=== PATIENT | male | born 1930 | race Caucasian/White ===

== ENCOUNTER 2016-12-30 12:23 | Inpatient (IN) | payer MEDICARE, OTHER ==
--- NOTE | ~2016-12-30 | HP ---
History And Physical [id number] [facility] [place]. [address] NAME: JAY RENTERIA : 34 STATUS : ADM IN [facility]#: [id number] AGE: 86 ADM/REG DATE : 12/30/16 MR#: [id number] REPORT SERV DATE: 12/30/16 DICTATED BY: RITCHIE OG DATE: 12/30/16 REPORT STATUS : Draft TRANSCRIBED BY: MODL DATE: 12/30/16 DATE OF ADMISSION: 12/30/2016 CHIEF COMPLAINT: Dyspnea. HISTORY OF PRESENT ILLNESS: The patient is an 86-year-old white male with a long complex past medical history most notably, he has an ischemic cardiomyopathy with an EF of 35; chronic kidney disease; and diabetes mellitus. He has a history of repeated admissions. Today, he presented after having about three to four days of increased shortness of breath. He has a cough and he has not had much in the way of sputum production. No new lower extremity edema. No typical orthopnea. He has had no abdominal pain. No diarrhea. No nausea or vomiting, and no chest pain. Over the last couple of days, he does have intermittent chest pain at home on a regular basis, which is consistent with stable angina for which he takes nitroglycerin, but he has not taken in the last couple of days. His most notable complaint is shortness of breath. He also has what he describes as a pimple under his right arm. He has had this in the past. It sounds like he has had hidradenitis on the left arm. This area was red and he actually went to the walk-in clinic yesterday and received p.o. Bactrim. He has not had documented fevers, but they have not taken his temperature. He is demented. He has a history of significant neuropathy and some gait instability. He also had a previous stroke. He requires a walker to ambulate and he requires assistance with most of his ADLs according to his . Over the last several days, he has become progressively weaker and has been unable to ambulate independently. PAST MEDICAL HISTORY: 1. CAD with history of CABG. 2. Ischemic cardiomyopathy, EF of 35. 3. Status post defibrillator and pacemaker. 4. Hypertension. 5. PAD with history of left carotid endarterectomy. 6. Chronic hypoxemic respiratory failure on 2 liters of O2, etiology unclear, but past CT shows what looks like an interstitial lung disease. 7. Diabetes mellitus. 8. Hypothyroidism. 9. Hyperlipidemia. 10.Gout. 11.B12 deficiency. 12.CKD with baseline creatinine around 1.5 to 2.0. 13.Peripheral neuropathy. 14.Ataxia. 15.Previous stroke. 16.Dementia. 17.Previous encephalopathy. PAST SURGICAL HISTORY: He has had a CABG, AICD and pacer; multiple skin cancer removal; tonsillectomy; and CEA. History And Physical [address] [address] NAME: JAY RENTERIA : 32 STATUS : ADM IN [facility]#: [id number] AGE: 86 ADM/REG DATE : 12/30/16 MR#: [id number] REPORT SERV DATE: 12/30/16 DICTATED BY: RITCHIE OG DATE: 12/30/16 REPORT STATUS : Draft TRANSCRIBED BY: LUCI DATE: 12/30/16 SOCIAL HISTORY: He quit smoking in the 70s. He does not drink alcohol. He is , lives with his . ALLERGIES: CODEINE. HOME MEDICATIONS: Reviewed and attached. REVIEW OF SYSTEMS: A full 10-point review of systems was obtained. Pertinent positives mentioned in the HPI. PHYSICAL EXAMINATION: CURRENT VITAL SIGNS: He is 98% on 5 liters, BP is 153/72, temperature 97.1, pulse 70, and respiratory rate 16. GENERAL: Elderly white male, who appears frail. HEENT: Normocephalic and atraumatic. Throat is clear. NECK: Supple. HEART: Regular rate and rhythm. LUNGS: He has crackles at both bases. ABDOMEN: Soft, nontender, and nondistended. He has normal bowel sounds. He was soaked in urine when arrived. EXTREMITIES: His extremities are warm and dry. He has 2+ pulses at the feet with no peripheral edema. SKIN: He has two pustules under his right arm, but no surrounding cellulitis. NEUROLOGIC: He is alert and he is oriented to person and place, but not time. He has symmetrical strength and tone in all four extremities, but is generally weak. LABORATORY AND X-RAY: EKG shows sinus rhythm with no acute ST-T wave changes. Sodium is 145, potassium 4, chloride 107, CO2 32, BUN and creatinine 33 and 1.67, and glucose 236. LFTs are normal. Troponin is 0.07. Lactate is 3.2. ABG is 7.46/33/74. CBC: White count 31, H and H 12.7 and 39, and platelets are 294. INR is 1.2. BNP is 620. Chest x-ray, it looks like venous congestion, some right base atelectasis. ASSESSMENT/PLAN: 1. Hypoxemic respiratory failure with associated leukocytosis. Hypoxemia with increased O2 requirement of 5 liters, previously on 2, certainly raises suspicion for underlying infection; however, it is not clearcut on x-ray and he has no increased cough or sputum. I have yet to see his urine sample. I am going to cover him empirically for pneumonia. We will culture his blood and urine. Check procalcitonin. Repeat his lactic acid. Place him on also some DuoNebs and continue his O2. May do additional imaging with CT to further define. 2. History of acute ischemic cardiomyopathy with defibrillator, pacemaker, and what looks like some component of volume overload. His BNP is up. He has crackles on exam. I am going to diurese him over the next 24 hours. He has gotten one dose of Lasix in the ER. I am going to place a [place]. Keep in's and out's, daily weights, place him on a 2 g sodium diet. 3. Pustule under the right armpit, this is a possible hidradenitis. He is covered with antibiotics. We will follow very closely. History And Physical [address] [address] NAME: JAY RENTERIA : 34 STATUS : ADM IN PAT#: [id number] AGE: 86 ADM/REG DATE : 12/30/16 MR#: [id number] REPORT SERV DATE: 12/30/16 DICTATED BY: RITCHIE OG DATE: 12/30/16 REPORT STATUS : Draft TRANSCRIBED BY: LUCI DATE: 12/30/16 4. History of chronic kidney disease, stable at baseline. 5. Possible history of interstitial lung disease on previous CT, again repeat imaging. 6. History of peripheral artery disease. 7. History of coronary artery disease. Troponin is 0.07, but no EKG changes. No chest pain. We will repeat with two more sets of enzymes. 8. Diabetes mellitus. Continue home insulin. We will add sliding scale. 9. History of ataxia. We will place on fall risk precautions. 10.History of dementia. 11.Code status. The patient does not desire intubation or mechanical ventilation. This has been indicated in his chart per the DNR order set. He does, however, desire CPR according to his and these orders have been written. 12.Disposition. Pending above aforementioned plan and workup. 13.Deep venous thrombosis prophylaxis. Subcutaneous heparin. FÁTIMA/LUCI Ritchie Og M.D. / [id number] CC: Leonardo Malik M.D. Jay Horton Jr., M.D. Pj Angeles M.D., Ph.D, F.A.C.C.
--- NOTE | ~2016-12-30 | DS ---
Discharge Summary [id number] [place]. [address] NAME: JAY RENETRIA : 34 STATUS : DIS IN PAT#: [id number] AGE: 86 ADM/REG DATE : 12/30/16 MR#: [id number] REPORT SERV DATE: 01/02/17 DICTATED BY: STARLA CH DATE: 01/01/17 REPORT STATUS : Draft TRANSCRIBED BY: MODL DATE: 01/01/17 ADMISSION DATE: 12/30/2016 DISCHARGE DATE: 01/01/2017 DISCHARGE DIAGNOSES: 1. Acute hypoxic respiratory failure, combination of heart failure plus lung cancer. 2. Ischemic cardiomyopathy. 3. Acute on chronic systolic heart failure. 4. Chronic obstructive pulmonary disease with newly diagnosed with clinically metastatic lung cancer, seen by Dr. Connelly and Dr. Vidales. The patient is referred to [facility]. 5. Chronic kidney disease. 6. Diabetes mellitus. CONSULTANTS: 1. Hector Connelly M.D. 2. Roger Vidales M.D. 3. [facility]. HISTORY OF PRESENT ILLNESS: This is an 86-year-old male patient, who came to the hospital with short of breath. Please see dictated H and P done by Dr. Inge Og. HOSPITAL COURSE: He was admitted to the hospital with hypoxia, had an evaluation with CT of the chest along with the treatment of heart failure and pneumonia. His CT scan showed large left lower lobe mass with multiple lymph nodes and also large adrenal nodules and multiple liver lesions. Discussed it with Dr. Connelly, the patient was seen by Dr. Connelly, evaluation done. More likely clinically the patient has a metastatic lung cancer. After discussion with myself and also chef saucier, the patient was referred to Dr. Vidales. Having a discussion with Dr. Vidales, the care was decided to be referred to [facility]. He is being diuresed with diuretics while he is in here. He is deciding that he will be discharged to home with [facility] for his end of life care. EKL/MODL Starla Ch M.D. / [id number] CC: Leonardo Malik M.D.
[2016-12-30 11:50] LABS: BASOPHILS ABSOLUTE 0.31 10/3/uL (0.0-0.16); EOSINOPHILS 0 %; EOSINOPHILS ABSOLUTE 0.01 10/3/uL (0.0-0.53); HEMATOCRIT 39.4 % (40.0-51.0); HEMOGLOBIN 12.7 g/dL (13.6-17.8); IMMATURE GRANULOCYTES 17.5 %; LYMPHOCYTES 9.6 %; LYMPHOCYTES ABSOLUTE 2.99 10/3/uL (0.67-4.30); MEAN CORPUS HGB CONC 32.2 g/dL (32.0-36.0); MEAN CORPUSCULAR HEMOGLOB 29.3 pg (26.0-34.0); MEAN CORPUSCULAR VOLUME 90.8 fL (80-100); MEAN PLATELET VOLUME 10.1 fL (9.2-13.0); MONOCYTES 9.2 %; MONOCYTES ABSOLUTE 2.87 10/3/uL (0.21-1.20); NEUTROPHILS 62.7 %; NEUTROPHILS ABSOLUTE 19.58 10/3/uL (2.02-8.40); PLATELET COUNT 94 10/3/uL (150-400); RBC DISTRIBUTION WIDTH 19.1 % (12.0-16.0); RED CELL COUNT 4.34 10/6/uL (4.7-6.1); WHITE BLOOD CELLS 31.2 10/3/uL (4.5-10.5)
[2016-12-30 11:51] LABS: IMMATURE GRANULOCYTES ABSOLUTE 5.47 10/3/uL (0.0-0.11); MANUAL DIFF NO %
[2016-12-30 11:57] LABS: INTERNATIONAL NORMAL RATI 1.2 UNITS (-); PROTIME (NOT ORD) 14.7 SEC (12.0-14.5)
[2016-12-30 11:58] LABS: NUCLEATED RED BLOOD CELLS 1.1 /100WBC (0-0)
[2016-12-30 12:06] LABS: ALBUMIN 3.6 G/DL (3.5-5.0); ALKALINE PHOSPHATASE 105 U/L (45-117); BUN (BLOOD UREA NITROGEN) 33 MG/DL (6-23); CALCIUM, SERUM 8.9 MG/DL (8.5-10.4); CHLORIDE, SERUM 107 MMOL/L (96-112); CO2 (CARBON DIOXIDE) 32 MMOL/L (24-34); CREATININE 1.67 MG/DL (0.70-1.30); GFR AFRICAN AMERICAN 43 ML/MIN (>=60); GFR NON AFRICAN AMERICAN 37 ML/MIN (>=60); GLOBULIN 3.5 G/DL (2.5-4.1); GLUCOSE, SERUM 236 MG/DL (60-99); SGOT(AST) 31 U/L (5-40); SGPT(ALT) 50 U/L (5-65); SODIUM, SERUM 145 MMOL/L (135-148); TOTAL BILIRUBIN 0.5 MG/DL (0-1.2); TOTAL PROTEIN 7.1 G/DL (6.0-8.5)
[2016-12-30 12:07] LABS: TROPONIN I 0.07 NG/ML (<0.05)
[2016-12-30 12:09] LABS: ALLENS TEST Pos; BE (BASE EXCESS) -0.2 MEQ/L (0 +/- 2.5); CARBOXYHEMOGLOBIN 1.7 % (0-3); DEVICE NC; HEMOBLOGIN CONTENT 13.1 G/DL (14-18); INSTRUMENT SERIAL # 8087; METHEMOGLOBIN 0.3 % (0-3); PCO2 (CO2 TENSION) 33 MMHG (35-45); PO2 (O2 TENSION) 74 MMHG (79-93); SAMPLE Arterial; pH 7.46 (7.37-7.43)
[2016-12-30 12:09] LABS: ANISOCYTOSIS 1+ (5-10/OIF) (0-5/OIF); BAND NEUTROPHILS 14 %; ER DIFF TAT 0 Hrs 23 Mins; IMMATURE GRANS ABSOLUTE (CALC) 4.68 10/3/uL (0.0-0.11); LYMPHOCYTES 8 %; METAMYELOCYTES 13 %; MONOCYTES 10 %; MONOCYTES ABSOLUTE (CALC) 3.12 10/3/uL (0.21-1.20); MYELOCYTES 1 %; PLATELET ESTIMATE DEC (ADEQUATE); SEGMENTED NEUTROPHIL (0) 54 %; TOTAL NUCLEATED CELLS 100
[~2016-12-30 12:23] MED LIST: ARICEPT PO; ARICEPT10 PO; ARICEPT23 MG PO; ARICEPT5 PO; ASAB PO; B121000P IM; CALTRA600D PO; COREG12 PO; COREG3 PO; COREG6 PO; DCN100 PO; DIABET2.5 PO; DIABETA5 PO; DIOV80 PO; DIOVAN40 MG PO; FISH-EPA1000 MG PO; FLEX PO; FLOMAX4 PO; FOLIC PO; FORTICAL200 MG/ACT NAS; HALF81 PO; IND25 PO; K-TABS10 MEQ PO; KDUR20 PO; KEPPRA250 PO; KLOR-CON M2020 MEQ PO; L40 PO; LANTUS SC; LANTUSCART SC; LEVAQUIN750 MG PO; LEVOTHYROXIN100 MCG PO; LEVOTHYROXIN50 MCG PO; LEVOTHYROXIN88 MCG PO; LIPITOR10 PO; LOPID6 PO; LYRICA200 MG PO; LYRICA50 PO; MIACALCIN NAS; MUCINEX600 MG PO; NAMENDA10 MG PO; NAMENXR28 PO; NITROQUICK0.4 MG SL; NITROSTAT0.4 MG SL; OS500 PO; OS500+D PO; PLAVIX PO; POTASSIUM PO; PRILO PO; RAZADYNE12 MG PO; REM15 PO; VICTOZA18 MG/3 ML SC; Z300 PO; ZOCOR10 PO
[2016-12-30] MEDS ORDERED: PLAVIX PO (13:11)
[2016-12-30] MEDS ORDERED: BACDS PO (13:11)
[2016-12-30] MEDS ORDERED: LOPID6 PO (13:11)
[2016-12-30] MEDS ORDERED: KLOR-CON M2020 MEQ PO (13:12)
[2016-12-30] MEDS ORDERED: ASAB PO (13:13)
[2016-12-30] MEDS ORDERED: L40 PO (13:13)
[2016-12-30] MEDS ORDERED: LEVOTHYROXIN100 MCG PO (13:13)
[2016-12-30] MEDS ORDERED: Z300 PO (13:13)
[2016-12-30] MEDS ORDERED: PRILO PO (13:15)
[2016-12-30] MEDS ORDERED: ARICEPT10 PO (13:15)
[2016-12-30] MEDS ORDERED: B121000P IM (13:16)
[2016-12-30] MEDS ORDERED: FISH-EPA1000 MG PO (13:16)
[2016-12-30] MEDS ORDERED: MIACALCIN NAS (13:16)
[2016-12-30] MEDS ORDERED: OS500+D PO (13:16)
[2016-12-30] MEDS ORDERED: LIPITOR10 PO (13:16)
[2016-12-30] MEDS ORDERED: TANZEUM SC (13:18)
[2016-12-30] MEDS ORDERED: LYRICA50 PO (13:18)
[2016-12-30] MEDS ORDERED: RAZADYNE12 MG PO (13:18)
[2016-12-30] MEDS ORDERED: NAMENDA10 MG PO (13:19)
[2016-12-30] MEDS ORDERED: LANTUS SC (13:19)
[2016-12-30] MEDS ORDERED: COREG12 PO (13:19)
[2016-12-30 16:02] LABS: ASCORBIC ACID (UR NOT ORDER) NEG (NEG); BILIRUBIN, URINE NEGATIVE (NEG); KETONE, URINE NEGATIVE (NEG); LEUKOCYTE ESTERASE(NOT OR SMALL (NEG); WBC (NOT ORDERED) (RFLEX) 6 (0-5)
[2016-12-31 06:10] LABS: BUN (BLOOD UREA NITROGEN) 30 MG/DL (6-23); CALCIUM, SERUM 8.6 MG/DL (8.5-10.4); CHLORIDE, SERUM 105 MMOL/L (96-112); CO2 (CARBON DIOXIDE) 31 MMOL/L (24-34); CREATININE 1.58 MG/DL (0.70-1.30); FREE T4 0.96 NG/DL (0.76-1.46); GFR AFRICAN AMERICAN 46 ML/MIN (>=60); GFR NON AFRICAN AMERICAN 40 ML/MIN (>=60); POTASSIUM, SERUM 3.4 MMOL/L (3.5-5.3); SODIUM, SERUM 145 MMOL/L (135-148)
[2016-12-31 06:11] LABS: GLUCOSE, SERUM 122 MG/DL (60-99); ULTRASENSITIVE TSH 0.173 MCIU/ML (0.358-3.740)
[2016-12-31 06:41] LABS: HEMATOCRIT 38.5 % (40.0-51.0); HEMOGLOBIN 12.5 g/dL (13.6-17.8); MEAN CORPUS HGB CONC 32.5 g/dL (32.0-36.0); MEAN CORPUSCULAR VOLUME 89.3 fL (80-100); MEAN PLATELET VOLUME 10.7 fL (9.2-13.0); NUCLEATED RED BLOOD CELLS 0.9 /100WBC (0-0); PLATELET COUNT 100 10/3/uL (150-400); RBC DISTRIBUTION WIDTH 18.9 % (12.0-16.0); RED CELL COUNT 4.31 10/6/uL (4.7-6.1)
[2016-12-31 06:45] LABS: WHITE BLOOD CELLS 27.3 10/3/uL (4.5-10.5)
[2016-12-31 06:46] LABS: MANUAL DIFF YES %
[2016-12-31 07:32] LABS: ANISOCYTOSIS 1+ (5-10/OIF) (0-5/OIF); BAND NEUTROPHILS 11 %; IMMATURE GRANS ABSOLUTE (CALC) 0.27 10/3/uL (0.0-0.11); LYMPHOCYTES 9 %; LYMPHOCYTES ABSOLUTE (CALC) 2.46 10/3/uL (0.67-4.30); METAMYELOCYTES 1 %; MONOCYTES 9 %; MONOCYTES ABSOLUTE (CALC) 2.46 10/3/uL (0.21-1.20); NEUTROPHILS ABSOLUTE (CALC) 22.11 10/3/uL (2.02-8.40); PLATELET ESTIMATE DEC (ADEQUATE); SEGMENTED NEUTROPHIL (0) 70 %; TOTAL NUCLEATED CELLS 100
[2017-01-01 09:33] LABS: HEMATOCRIT 42.3 % (40.0-51.0); HEMOGLOBIN 13.6 g/dL (13.6-17.8); MEAN CORPUS HGB CONC 32.2 g/dL (32.0-36.0); MEAN CORPUSCULAR HEMOGLOB 29.1 pg (26.0-34.0); MEAN CORPUSCULAR VOLUME 90.4 fL (80-100); MEAN PLATELET VOLUME 10.9 fL (9.2-13.0); NUCLEATED RED BLOOD CELLS 0.5 /100WBC (0-0); PLATELET COUNT 106 10/3/uL (150-400); RED CELL COUNT 4.68 10/6/uL (4.7-6.1)
[2017-01-01 09:34] LABS: MANUAL DIFF YES %; WHITE BLOOD CELLS 27.3 10/3/uL (4.5-10.5)
[2017-01-01 09:42] LABS: ALBUMIN 3.3 G/DL (3.5-5.0); BUN (BLOOD UREA NITROGEN) 33 MG/DL (6-23); CHLORIDE, SERUM 103 MMOL/L (96-112); CO2 (CARBON DIOXIDE) 31 MMOL/L (24-34); CREATININE 1.44 MG/DL (0.70-1.30); GFR AFRICAN AMERICAN 51 ML/MIN (>=60); GFR NON AFRICAN AMERICAN 44 ML/MIN (>=60); POTASSIUM, SERUM 3.3 MMOL/L (3.5-5.3); SODIUM, SERUM 139 MMOL/L (135-148)
[2017-01-01 09:44] LABS: GLUCOSE, SERUM 83 MG/DL (60-99); PHOSPHORUS, SERUM 4.4 MG/DL (2.5-4.5)
[2017-01-01 10:13] LABS: ANISOCYTOSIS 1+ (5-10/OIF) (0-5/OIF); BAND NEUTROPHILS 11 %; LYMPHOCYTES 6 %; LYMPHOCYTES ABSOLUTE (CALC) 1.64 10/3/uL (0.67-4.30); MACROCYTES 1+ (5-10/OIF) (0-5/OIF); METAMYELOCYTES 8 %; MONOCYTES 10 %; MONOCYTES ABSOLUTE (CALC) 2.73 10/3/uL (0.21-1.20); MYELOCYTES 7 %; NEUTROPHILS ABSOLUTE (CALC) 18.84 10/3/uL (2.02-8.40); PLATELET ESTIMATE SLT DEC (ADEQUATE); SEGMENTED NEUTROPHIL (0) 58 %; TOTAL NUCLEATED CELLS 100
[2017-01-01 10:14] LABS: POLYCHROMASIA 1+ (2-5/OIF) (0-1/OIF)
== END 2017-01-01 15:08 | disposition hospice, home (50) | DRG 180 ==
LOC: ER 12:23 → 5NO 14:47
PROVIDERS: Emergency Medicine; Internal Medicine
PROC: 4B02XSZ Measurement of Cardiac Pacemaker, External Approach (ICD-10-PCS; principal; 2017-01-01)
DX: C34.12 Malignant neoplasm of upper lobe, left bronchus or lung (principal); J96.01 Acute respiratory failure with hypoxia; I50.23 Acute on chronic systolic (congestive) heart failure; C78.7 Secondary malignant neoplasm of liver and intrahepatic bile duct; C77.1 Secondary and unspecified malignant neoplasm of intrathoracic lymph nodes; C79.71 Secondary malignant neoplasm of right adrenal gland; J18.9 Pneumonia, unspecified organism; I13.0 Hypertensive heart and chronic kidney disease with heart failure and stage 1 through stage 4 chronic kidney disease, or unspecified chronic kidney disease; C79.72 Secondary malignant neoplasm of left adrenal gland; E11.22 Type 2 diabetes mellitus with diabetic chronic kidney disease; F03.90 Unspecified dementia, unspecified severity, without behavioral disturbance, psychotic disturbance, mood disturbance, and anxiety; Z99.81 Dependence on supplemental oxygen; I25.5 Ischemic cardiomyopathy; E03.9 Hypothyroidism, unspecified; M10.9 Gout, unspecified; N18.9 Chronic kidney disease, unspecified; E53.8 Deficiency of other specified B group vitamins; Z95.810 Presence of automatic (implantable) cardiac defibrillator; Z95.1 Presence of aortocoronary bypass graft; Z87.891 Personal history of nicotine dependence; Z88.5 Allergy status to narcotic agent; Z51.5 Encounter for palliative care
CPT/HCPCS: 36600; 71010; 71250; 80048; 80053; 80069; 81001; 82533; 82805; 82962; 83605; 83880; 84145; 84439; 84443; 84484; 85025; 85610; 87040; 87086; 93005; 94640; 96374; 99285; A9270-GY; J0456; J0692; J3370